=== PATIENT | female | born 1945 | race Caucasian/White ===

== ENCOUNTER 2020-10-05 19:02 | Emergency (ER) | payer MEDICARE, OTHER ==
[~2020-10-05] VITALS: Ht 154.9 cm; Wt 46.3 kg
[2020-10-05] MEDS ORDERED: LIDOCAINE 1% INJ 20 ML 20 ML VIAL INJ ONE (19:30)
[2020-10-05] MEDS ORDERED: TETANUS,DIPTH,PERTUSS P/F (BOOSTRIX) 0.5 ML VIAL IM ONE (19:45)
--- NOTE | 2020-10-05 20:06 | ED General ---
General Chief Complaint: Bite-Animal/Human/Insect Stated Complaint: DOG BITE UPPER RT SHOULDER Nursing Triage Note: pt states she was bitten by the family dog while playing with him to right shoulder. 2 inch laceration to anterior shoulder and 1 inch to lateral deltoid. with multiple superficial claw tejeda to top of shoulder Nursing Sepsis Screen: No Definite Risk Source of Information: Patient History of Present Illness Date Seen by Provider: Oct 05, 2020 Time Seen by Provider: 20:06 Initial Comments 75-year-old female presenting with complaints of laceration and dog bite to her right shoulder. The family dog was playing with the patient and her granddaughter. They got a little too excited and the dog got over excited as well. The dog is up-to-date on shots and vaccinations. The patient is unsure of her last tetanus booster. The injury caused a deep laceration to the anterior medial aspect of the shoulder and several superficial lacerations and abrasions as well as a superficial laceration over the lateral shoulder/deltoid area. She is having pain extending down her arm especially when she tries to move her shoulder. She denies any numbness or tingling in her hand. She is able to move all of her fingers. There is no other lacerations or injuries other than on top of her shoulder and to the lateral aspect of her shoulder. Allergies and Home Medications Allergies Coded Allergies: Penicillins (Verified Allergy, Unknown, 10/05/20) morphine (Verified Allergy, Unknown, 10/05/20) Home Medications Clindamycin HCl 300 Mg Capsule, 300 MG PO TID Prescribed by: MARK MC on 10/05/202116 Doxycycline Hyclate 100 Mg Tablet, 100 MG PO BID Prescribed by: MARK MC on 10/05/202116 Patient Home Medication List Home Medication List Reviewed: Yes Review of Systems Review of Systems Constitutional: No chills, No diaphoresis, No dizziness, No fever EENTM: no symptoms reported Respiratory: no symptoms reported Cardiovascular: no symptoms reported Gastrointestinal: no symptoms reported Genitourinary: no symptoms reported Musculoskeletal: see HPI Skin: see HPI Psychiatric/Neurological: Anxiety; Denies Numbness, Denies Paresthesia Hematologic/Lymphatic: No Symptoms Reported Immunological/Allergic: no symptoms reported Past Eowztqm-[id number]-Uztczq Hx Past Med/Social Hx: Reviewed Nursing Past Med/Soc Hx Patient Social History Alcohol Use: Denies Use Smoking Status: Current Everyday Smoker Type Used: Cigarettes 2nd Hand Smoke Exposure: No Recent Infectious Disease Expo: No Recent Hopitalizations: No Seasonal Allergies Seasonal Allergies: No Past Medical History Surgeries: No Respiratory: No Cardiac: No Neurological: No Genitourinary: No Gastrointestinal: No Musculoskeletal: No Endocrine: No HEENT: No Cancer: No Psychosocial: No Integumentary: No Blood Disorders: No Physical Exam Vital Signs Vital Signs - First Documented 10/05/20 19:30 Temp 36.6 Pulse 71 Resp 16 B/P (MAP) 130/47 (74) Pulse Ox 97 O2 Delivery Room Air Capillary Refill : Less Than 3 Seconds Height, Weight, BMI Height: '" Weight: lbs. oz. kg; 19.00 BMI Method: General Appearance: WD/WN, Anxious, Mild Distress HEENT: PERRL/EOMI, Pharynx Normal Neck: Non Tender, Supple Respiratory: Lungs Clear, Normal Breath Sounds Cardiovascular: Regular Rate, Rhythm, Normal Peripheral Pulses Extremity: Normal Capillary Refill, Other (Pain and swelling to the right anterior and lateral shoulder where she has laceration and abrasions from the dog bite) Neurologic/Psychiatric: Alert, Oriented x3, No Motor/Sensory Deficits, doctor osteopathic II- XII Norm as Tested Skin: Warm/Dry, Other (Lacerations and abrasions to the right anterior shoulder and lateral shoulder.) Procedures/Interventions Wound Location: Upper Extremities (Right shoulder medial clavicle) Wound Length (cm): 3.8 Wound's Depth, Shape: irregular, contused tissue, sub Q Wound Explored: contaminated (Dog bite) Betadine Prep?: Yes Anesthesia: 1% Lidocaine Volume Anesthetic (ccs): 5 Suture: Ethlion Suture Size: 4-0 Number of Sutures: 3 Layer Closure?: 1 Sterile Dressing Applied?: Yes Progress After obtaining verbal consent from the patient the wound was anesthetized with 1% plain lidocaine. The nurse had already cleaned the wound and flushed it with chlorhexidine scrub soap and sterile water. I further cleaned it with Betadine scrub soap and sterile water. Then using 4-0 Ethilon I loosely approximated the wound edges with 3 simple interrupted stitches. Patient tolerated this well without any immediate complications. Wound Location: Upper Extremities (Right lateral shoulder over the deltoid area) Wound Length (cm): 1.7 Wound's Depth, Shape: irregular, contused tissue, sub Q Wound Explored: contaminated (Dog bite) Betadine Prep?: Yes Anesthesia: 1% Lidocaine Volume Anesthetic (ccs): 4 Suture: Ethlion Suture Size: 4-0 Number of Sutures: 1 Layer Closure?: 1 Sterile Dressing Applied?: Yes Progress After obtaining verbal informed consent from the patient the wound was anesthe tized with 4 mL of 1% plain lidocaine. The wound had already been flushed and cleaned initially by the nurse with chlorhexidine soap and sterile water. I further cleaned it with Betadine scrub soap and sterile water. The wound was irregular and had a skin tear as well as subcutaneous laceration. A single simple interrupted stitch was applied which helped to approximate the wound edges. The skin tear was smoothed out and approximated over the wound. Patient tolerated procedure well without any immediate complications. Counseled on follow-up and return precautions. Progress/Results/Core Measures Suspected Sepsis Recent Fever Within 48 Hours: No Infection Criteria Present: None New/Unexplained Altered Menta: No Sepsis Screen: No Definite Risk SIRS Temperature: Pulse: 71 Respiratory Rate: 16 Blood Pressure 130 /47 Mean: 74 Results/Orders My Orders Orders - MARK MC MD Lidocaine 1% Inj 20 Ml (Xylocaine 1% Inj (10/05/20 19:30) Dipht,Pertuss(Acell),Tet Adult (Boostrix (10/05/20 19:45) Wound Dressing-Ed (10/05/20 21:09) Doxycycline Hyclate Tablet (Vibramycin T (10/05/20 21:09) Clindamycin Capsule (Cleocin Capsule) (10/05/20 21:09) Medications Given in ED Current Medications Medications Dose Ordered Sig/Sean Route Start Time Stop Time Status Last Admin Dose Admin Diphtheria/ Tetanus/Acell Pertussis 0.5 ml ONCE ONCE IM 10/05/20 19:45 10/05/20 19:46 DC 10/05/20 21:13 0.5 ML Lidocaine HCl 20 ml ONCE ONCE INJ 10/05/20 19:30 10/05/20 19:31 DC 10/05/20 21:14 20 ML Vital Signs/I&O 10/05/20 10/05/20 19:30 21:27 Temp 36.6 Pulse 71 94 Resp 16 15 B/P (MAP) 130/47 (74) 118/37 Pulse Ox 97 98 O2 Delivery Room Air Room Air Capillary Refill : Less Than 3 Seconds Blood Pressure Mean: 74 Progress Note : Progress Note After obtaining informed consent from the patient the wounds were anesthetized and cleaned with Betadine scrub and sterile water. They had initially already been cleaned with chlorhexidine and sterile water by the nurse on arrival. After loosely approximating the wound edges of the gaping wounds on her right shoulder and clavicle area she was started on doxycycline with clindamycin as she is allergic to penicillins. Counseled on follow-up and return precautions. Advised to try and keep the shoulder elevated to help with bruising and pain. Use ice to help with bruising and pain. Acetaminophen and ibuprofen as needed for pain. Departure Impression Primary Impression: Open wound of right shoulder due to dog bite Additional Impression: Laceration of right shoulder with complication Qualified Codes: S41.011A - Laceration without foreign body of right shoulder, initial encounter Disposition: 01 HOME, SELF-CARE Condition: Stable Departure-Patient Inst. Decision time for Depature: 21:13 Referrals: ROBYN SANTOS MD (PCP/Family) Primary Care Physician Patient Instructions: Animal Bites ED, Wound Care ED, Laceration Repair With Stitches ED Add. Discharge Instructions: Keep wound clean and dry for 24 hours then may wash with soap and water. Apply antibiotic ointment 2-3 times a day and cover with bandage if rubbing against clothes Take antibiotics to help try and prevent infection. Return or seek medical care for signs of infection such as redness streaking up the shoulder or across the chest, fever over 101 F, or pus draining from the wounds. Apply ice 20-30 minutes every few hours and try to elevate the shoulder to help with bruising and pain. Ibuprofen or Naprosyn for pain or may take Acetaminophen for pain. Stitches out in 10-14 days or be seen sooner for more concerns about the wounds All discharge instructions reviewed with patient and/or family. Voiced understanding. Scripts Clindamycin HCl (Clindamycin HCl) 300 Mg Capsule 300 MG PO TID for dog bite for 10 Days, #30 CAP 0 Refills Prov: MARK MC MD 10/05/20 Doxycycline Hyclate (Doxycycline Hyclate) 100 Mg Tablet 100 MG PO BID for dog bite for 10 Days, #20 TAB 0 Refills Prov: ENYART,MARK E MD 10/05/20 MARK MC MD Oct 05, 2020 20:06
[2020-10-05] MEDS ORDERED: CLINDAMYCIN 150 MG (CLEOCIN) CAP PO STA (21:09)
[2020-10-05] MEDS ORDERED: DOXYCYCLINE 100 MG (VIBRAMYCIN) TABLET PO STA (21:09)
[2020-10-05] MEDS ORDERED: CLIN300C12 PO (21:17)
[2020-10-05] MEDS ORDERED: DOXY100T2 PO (21:17)
[2020-10-05 21:27] VITALS: BP 118/37
== END 2020-10-05 21:27 | disposition home or self-care (01) ==
LOC: ER FS 19:04
DX: S41.011A Laceration without foreign body of right shoulder, initial encounter (principal); F41.9 Anxiety disorder, unspecified; F17.210 Nicotine dependence, cigarettes, uncomplicated; Z88.0 Allergy status to penicillin; Z88.5 Allergy status to narcotic agent; Z23 Encounter for immunization; W54.0XXA Bitten by dog, initial encounter
CPT/HCPCS: 99284; A6223; 90715